=== PATIENT | male | born 1955 | race Caucasian/White ===

== ENCOUNTER 2021-01-13 04:15 | Day surgery (SDC) | payer OTHER ==
[2021-01-12 12:10] VITALS: BMI 28.8
[2021-01-13] MEDS ORDERED: DEXAMETHASONE SOD PHOSPHATE 10 MG/1 ML VIAL ONE (08:26)
[2021-01-13] MEDS ORDERED: BUPIVACAINE HCL/PF 0.5% (5MG/ML) 10 ML VIAL ONE (08:27)
[2021-01-13] MEDS ORDERED: MIDAZOLAM HCL 2 MG/2 ML SINGLE DOSE VIAL ONE ×2 (08:39)
[2021-01-13] MEDS ORDERED: PROPOFOL 20 ML ONE ×3 (12:50→14:04)
[2021-01-13] MEDS ORDERED: ceFAZolin SODIUM 1 GM VIAL IVPB ONE (14:10)
[2021-01-13] MEDS ORDERED: ONDANSETRON 4 MG/2 ML VIAL IVPUSH PRN (14:19)
[2021-01-13] MEDS ORDERED: oxyCODONE HCL 5 MG TABLET PO PRN (14:19)
[2021-01-13] MEDS ORDERED: LACTATED RINGERS SOLUTION 1,000 ML IV SCH (14:30)
[2021-01-13] MEDS ORDERED: oxyCODONE HCL 5 MG TABLET ONE (16:23)
[2021-01-13] MEDS ORDERED: ACETAMINOPHEN 325 MG TABLET (FP) ONE (16:23)
[2021-01-13] MEDS ORDERED: oxyCODONE HCL 5 MG TABLET PO ONE (16:28)
[2021-01-13] MEDS ORDERED: ACETAMINOPHEN 325 MG TABLET (FP) PO ONE (16:28)
[2021-01-13 18:30] VITALS: BP 150/80; PULSE 78; TEMP 97.8
== END 2021-01-13 19:01 | disposition home or self-care (01) ==
LOC: JASU-SURG 04:15
PROVIDERS: ATTEND Orthopaedic Surgery
PROC: 0LS30ZZ Reposition Right Upper Arm Tendon, Open Approach (ICD-10-PCS; principal; 2021-01-13 15:00)
DX: M66.321 Spontaneous rupture of flexor tendons, right upper arm (principal)
CPT/HCPCS: 94760; J1100